=== PATIENT | male | born 1945 | race Caucasian/White ===

== ENCOUNTER → 2019-03-15 09:04 | Outpatient (CLI) | payer OTHER, SELFPAY ==
--- NOTE | 2019-03-15 | DI.US.S_ITS ---
PROCEDURE: US PARACENTESIS INDICATIONS: ASCITIES TECHNIQUE: The indications, alternatives, benefits, risks, and complications of the procedure were explained to the patient. Written informed consent was obtained and placed in the chart. The abdomen and pelvis were examined sonographically, and an appropriate site was chosen for paracentesis. The skin was prepared and draped in the usual sterile fashion, and 1% lidocaine was infiltrated from the skin down through the peritoneal surface. A 19-gauge catheter-covered needle was then introduced into the peritoneal space, the catheter was advanced and the needle was withdrawn, and thereafter peritoneal fluid was withdrawn. The catheter was then removed and a dressing was applied. The fluid was discarded if the clinician did not order diagnostic testing of the fluid. COMPARISON: None. FINDINGS: Access site: Right lateral abdomen/pelvis junction. Needle: One-Step centesis catheter with introducer needle. Fluid volume and description: 3400 cc, clear serous fluid Fluid sent for diagnostic testing: Not requested Medications: 1% lidocaine for local anaesthesia. Complications: None. IMPRESSION: Successful ultrasound-guided paracentesis. Dictated by: Mark Paris M.D. on 03/15/2019 at 11:43 Approved by: Mark Paris M.D. on 03/15/2019 at 11:45
== END ==
PROVIDERS: Visit Provider Internal Medicine Hematology & Oncology
DX: C22.0 Liver cell carcinoma (principal); R18.8 Other ascites; K74.60 Unspecified cirrhosis of liver
CPT/HCPCS: 49083

== ENCOUNTER 2019-09-05 15:46 | Emergency (ER) | payer OTHER, SELFPAY ==
[2019-09-05] VITALS (8 sets, daily range): BP systolic 125–152; BP diastolic 58–69; PULSE 63–69; RESP 17–19; TEMP 36.1; O2SAT 96–100; BMI 31.9
[2019-09-05 17:01] LABS: Add Manual Diff / Slide Review NO; Basophils Absolute Auto 100 /uL (0-100); Basophils Percent Auto 0.7 % (0-2); Eosinophils Absolute Auto 400 /uL (0-450); Eosinophils Percent Auto 4.1 % (2-4); Hematocrit 31.2 % (41-53); Hemoglobin 10.7 g/dL (13.5-17.5); Lymphocytes Absolute Auto 900 /uL (1100-4500); Lymphocytes Percent Auto 10.4 % (25-40); Mean Corpuscular HGB Conc 34.3 % (30-36); Mean Corpuscular Hemoglobin 31.6 PG (26-34); Mean Corpuscular Volume 92.3 fL (80-100); Monocytes Absolute Auto 900 /uL (0-900); Monocytes Percent Auto 11.1 % (3-14); Neutrophils Absolute Auto 6300 /uL (1500-7000); Neutrophils Percent Auto 73.7 % (50-75); Platelet Count 158 X10^3/uL (150-400); Red Blood Cell Count 3.38 X10^6/uL (4.5-5.9); Red Cell Distribution Width 15.9 % (11.6-14.8); White Blood Cell Count 8.5 X10^3/uL (4.5-11.0)
[2019-09-05 17:07] LABS: INR 1.2 (0.9-1.3); Prothrombin Time 14.2 SECONDS (10.1-12.7)
[2019-09-05 17:12] LABS: Alanine Aminotransferase 82 IU/L (<50); Albumin 3.7 g/dL (3.5-5.0); Albumin Globulin Ratio 0.9 (1.0-2.8); Alkaline Phosphatase 300 U/L (38-126); Aspartate Aminotransferase 208 IU/L (17-59); BUN Creatinine Ratio 23.3 (6-22); Bilirubin Total 3.2 mg/dL (0.2-1.3); Blood Urea Nitrogen 49 mg/dL (9-20); Calcium 10.5 mg/dL (8.4-10.2); Carbon Dioxide 19 mmol/L (22-32); Chloride 107 mmol/L (98-107); Globulin 3.9 g/dL (1.7-4.1); Glucose 210 mg/dL (80-110); HEMOLYSIS < 15 (0-50); Potassium 5.2 mmol/L (3.4-5.1); Sodium 137 mmol/L (137-145); Total Protein 7.6 g/dL (6.3-8.2)
--- NOTE | 2019-09-05 17:17 | DI.RAD.S_ITS ---
PROCEDURE: XR CHEST 1V INDICATIONS: weakness TECHNIQUE: One view of the chest was acquired. COMPARISON: None. FINDINGS: Surgical changes and devices: None. Lungs and pleura: There are medial linear bibasilar opacities likely representing atelectasis. No pleural effusions or pneumothorax. Mediastinum: There is a moderate to large hiatal hernia. Heart size is normal. Bones and chest wall: No suspicious bony lesions. Overlying soft tissues appear unremarkable. IMPRESSION: 1. Moderate to large hilar hernia with medial linear bibasilar opacities likely representing associated atelectasis although the differential includes consolidation or aspiration. Dictated by: Erick Henriquez M.D. on 09/05/2019 at 17:41 Approved by: Erick Henriquez M.D. on 09/05/2019 at 17:46
[2019-09-05 17:31] LABS: PTT Partial Thromboplastin Tim 32 SECONDS (26.4-36.2)
[2019-09-05 17:33] LABS: Creatine Kinase 112 U/L (55-170); Magnesium 2.2 mg/dL (1.6-2.3)
[2019-09-05 17:44] LABS: Troponin I < 0.012 ng/mL (0.01-0.034)
[2019-09-05 17:48] LABS: CKMB % Relative Index 3.5 % (1.5-5.0); Creatine Kinase MB 3.92 ng/mL (<2.37)
[2019-09-05 18:13] LABS: B Type Natriuretic Peptide 107 (<100)
[2019-09-05 18:31] LABS: Appearance Urine UA CLEAR; Bilirubin Urine UA NEGATIVE (NEGATIVE); Color Urine UA YELLOW; Glucose Urine UA NEGATIVE (Negative); Ketones Urine UA NEGATIVE (NEGATIVE); Leukocyte Esterase Urine UA NEGATIVE (NEGATIVE); Nitrite Urine UA NEGATIVE (Negative); Occult Blood Urine UA TRACE-LYSED (Negative); Protein Urine UA NEGATIVE (Negative); Specific Gravity Urine UA <=1.005 (1.000-1.035); Urobilinogen Urine UA 0.2 E.U./dL (0.2); pH Urine UA 5.5 (4.5-8.0)
[2019-09-05 18:38] LABS: Bacteria Urine Occasional (0-1); Culture Indicated Urine Cult Not Indicated; RBC Urine 1-5/HPF (0-5/HPF); Squamous Epithelial Cell Urine 1-5 /HPF (0-5/HPF); WBC Urine 1-5/HPF (0-5/HPF)
[2019-09-05 18:51] LABS: Influenza A and B by PCR Rapid Negative (Negative)
[2019-09-05] MEDS: SODIUM CHLORIDE 0.9% 500 ML 1000 ML IV (19:04)
[2019-09-05 19:30] LABS: Procalcitonin 0.13 ng/mL (<0.5)
--- NOTE | 2019-09-05 19:31 | ED.WEAKNESS ---
HPI - Weakness <Misa Marinmer, [employer] - Last Filed: 09/05/19 22:03> General Chief complaint: Weakness Stated complaint: WEAKNESS MIGHT NEED BLOOD TRANSFUSION Time Seen by Provider: 09/05/19 16:45 Source: patient Mode of arrival: Ambulatory Limitations: no limitations History of Present Illness HPI Narrative: The patient is a 74-year-old male nonsmoker with history of hepatocellular carcinoma, kidney stones portal vein thrombosis and liver cirrhosis with ascites who presents with his significant other for chief complaint of weakness over the past 2 days. He thinks he might need a blood transfusion, as he has needed that in the past. He complains of generalized weakness, his significant other states that it takes a lot more work to get him up. He denies any fevers, nausea vomiting or diarrhea. He does complain of decreased appetite. He also complains of a productive cough. He denies any sore throat or ear pain. He states that his ascites needs to gets tapped sometimes. He states that his cough is usually dry, but is occasionally productive. He is not sure if he has been around anybody who is sick. Regarding his cancer, he states he gets monthly infusions. He states this is a chemo like drugs, but he is not sure of the name. He denies any chest pain. He does complain of some increased shortness of breath. He states overall he feels very blah. Family states that he has slept all weekend. Related Data Home Medications Medication Instructions Recorded Confirmed Glucosamine Chondroitin 1 tab PO BID 09/05/19 09/05/19 atenolol 25 mg PO BID 09/05/19 09/05/19 beclomethasone diprop (AQ) 1 spray INTRANASAL BID PRN 09/05/19 09/05/19 cholecalciferol (vitamin D3) 1,000 unit PO QPM 09/05/19 09/05/19 [Vitamin D3] clonazepam 0.5 mg PO BEDTIME 09/05/19 09/05/19 furosemide 40 mg PO DAILY 09/05/19 09/05/19 glipizide 20 mg PO QAM 09/05/19 09/05/19 glipizide 20 mg PO QPM PRN 09/05/19 09/05/19 metformin 1,000 mg PO BID 09/05/19 09/05/19 multivitamin 1 tab PO QAM 09/05/19 09/05/19 omeprazole 40 mg PO DAILY 09/05/19 09/05/19 spironolactone 50 mg PO BID 09/05/19 09/05/19 tamsulosin 0.4 mg PO BEDTIME 09/05/19 09/05/19 Allergies Allergy/AdvReac Type Severity Reaction Status Date / Time ELVIS Inhibitors Allergy Mild Cough Verified 09/05/19 16:06 Review of Systems <MIKEY Delacruz - Last Filed: 09/05/19 22:03> Review of Systems Narrative: GENERAL: See HPI HEENT: Denies sinus pain, ear pain, sore throat, difficulty swallowing, dizziness. RESPIRATORY: See HPI CARDIOVASCULAR: Denies chest pain, palpitations, orthopnea, edema, GASTROINTESTINAL: See HPI : Denies dysuria, frequency, incontinence, hematuria, urinary retention. MUSCULOSKELETAL: denies weakness, joint pain, or bony pain SKIN: Denies rash, skin lesions, or other NEUROLOGIC: Denies weakness, headache, numbness, change in speech, confusion, seizures, incoordination. PSYCHIATRIC: No concerning psychosocial issues. 12 point review of systems is negative except for those stated above Patient History <MIKEY Delacruz - Last Filed: 09/05/19 22:03> Medical History (Updated 09/05/19 @ 22:01 by MIKEY Delacruz) Ascites (Acute) Cirrhosis (Acute) Hepatocellular carcinoma (Acute) Portal vein thrombosis (Acute) Social History Smoking Status: Never smoker Substance Use Type: does not use Exam <MIKEY Delacruz - Last Filed: 09/05/19 22:03> Narrative Exam Narrative: GENERAL: Chronically ill male in no acute distress HEAD: Atraumatic. Normocephalic. No temporal or scalp tenderness. EYES: Pupils equal round and reactive. Extraocular motions intact. No scleral icterus. No injection or drainage. ENT: Nose without bleeding, purulent drainage or septal hematoma. Throat without erythema, tonsillar hypertrophy or exudate. Uvula midline. Airway patent. NECK: Trachea midline. No JVD or lymphadenopathy. Supple, nontender, no meningeal signs. CARDIOVASCULAR: Regular rate and rhythm without murmurs, gallops, or rubs. RESPIRATORY: Coarse bilaterally to auscultation. Breath sounds equal bilaterally. No wheezes, rales, or rhonchi. Cough during exam GASTROINTESTINAL: Abdomen soft, protuberant, active bowel sounds all 4 quadrants. No palpable masses. No guarding. Soft, nontender to palpation EXTREMITIES: No clubbing, cyanosis, or edema. No joint tenderness, effusion, or edema noted. BACK: Nontender without deformity or crepitance. No flank tenderness. NEURO: AOx3. Interactive. Strength is equal upper and lower extremities bilaterally. slight smile droop noted on left side of mouth and lid lag on right. At baseline per patient and family SKIN: No rash or erythema on visible skin. Initial Vital Signs Initial Vital Signs: Vital Signs Temperature 96.9 F L 09/05/19 16:02 Pulse Rate 63 09/05/19 16:02 Respiratory Rate 18 09/05/19 16:02 Blood Pressure 145/59 H 09/05/19 16:02 Pulse Oximetry 97 09/05/19 16:02 <Rehan Greenfield DO - Last Filed: 09/06/19 03:12> Initial Vital Signs Initial Vital Signs: Vital Signs Temperature 96.9 F L 09/05/19 16:02 Pulse Rate 63 09/05/19 16:02 Respiratory Rate 18 09/05/19 16:02 Blood Pressure 145/59 H 09/05/19 16:02 Pulse Oximetry 97 09/05/19 16:02 Scores <MIKEY Delacruz - Last Filed: 09/05/19 22:03> CURB-65 Confusion: No BUN >19mg/dL (>7mmol/L): Yes Respiratory rate greater or equal to 30: No SBP <90mmHg or DBP less or equal to 60mmHg: No Age 65 or Older: Yes CURB-65 Total: 2 Score 0-1 Outpatient care, Score 2 Inpt vs. Obs, Score 3 or over Inpt admit with ICU for score of 4-5 Course <MIKEY Delacruz - Last Filed: 09/05/19 22:03> Orders Ordered: ED Orders 09/05/19 18:22 Influenza A and B by PCR Rapid Stat 09/05/19 18:28 Urinalysis and Microscopic Stat 09/05/19 20:09 Blood Culture Stat Discontinued Medications Sodium Chloride (Normal Saline 0.9%) 500 mls @ 1,000 mls/hr IV BOLUS ONE Stop: 09/05/19 19:10 Last Infusion: 09/05/19 19:35 Dose: 0 mls/hr Documented by: Admin: 09/05/19 19:04 Dose: 1,000 mls/hr Documented by: FRED Levofloxacin (Levaquin) 750 mg in 150 mls @ 100 mls/hr IV NOW ONE Stop: 09/05/19 21:51 Last Infusion: 09/05/19 22:15 Dose: 0 mls/hr Documented by: Admin: 09/05/19 21:31 Dose: 100 mls/hr Documented by: FRED Sodium Chloride (Normal Saline 0.9%) 1,000 mls @ 150 mls/hr IV CONT GLENDA Last Infusion: 09/05/19 22:15 Dose: 0 mls/hr Documented by: Admin: 09/05/19 21:31 Dose: 150 mls/hr Documented by: FRED Vital Signs Vital signs: Vital Signs - 8 hr 09/05/19 20:00 09/05/19 21:00 09/05/19 22:12 Pulse Rate 66 67 69 Respiratory Rate 19 17 18 Blood Pressure [Right Arm] 144/61 H 152/64 H 146/61 H Pulse Oximetry 98 98 99 <Rehan Greenfield DO - Last Filed: 09/06/19 03:12> Orders Ordered: ED Orders 09/05/19 18:22 Influenza A and B by PCR Rapid Stat 09/05/19 18:28 Urinalysis and Microscopic Stat 09/05/19 20:09 Blood Culture Stat Discontinued Medications Sodium Chloride (Normal Saline 0.9%) 500 mls @ 1,000 mls/hr IV BOLUS ONE Stop: 09/05/19 19:10 Last Infusion: 09/05/19 19:35 Dose: 0 mls/hr Documented by: Admin: 09/05/19 19:04 Dose: 1,000 mls/hr Documented by: FRED Levofloxacin (Levaquin) 750 mg in 150 mls @ 100 mls/hr IV NOW ONE Stop: 09/05/19 21:51 Last Infusion: 09/05/19 22:15 Dose: 0 mls/hr Documented by: Admin: 09/05/19 21:31 Dose: 100 mls/hr Documented by: FRED Sodium Chloride (Normal Saline 0.9%) 1,000 mls @ 150 mls/hr IV CONT GLENDA Last Infusion: 09/05/19 22:15 Dose: 0 mls/hr Documented by: Admin: 09/05/19 21:31 Dose: 150 mls/hr Documented by: FRED Vital Signs Vital signs: Vital Signs - 8 hr 09/05/19 20:00 09/05/19 21:00 09/05/19 22:12 Pulse Rate 66 67 69 Respiratory Rate 19 17 18 Blood Pressure [Right Arm] 144/61 H 152/64 H 146/61 H Pulse Oximetry 98 98 99 MDM - Weakness <LUIZ DelacruzBC - Last Filed: 09/05/19 22:03> Lab Data Result diagrams: 09/05/19 16:40 09/05/19 16:40 Labs: Lab Results 09/05/19 09/05/19 09/05/19 Range/Units 16:40 16:40 16:40 WBC 8.5 (4.5-11.0) X10^3/uL RBC 3.38 L (4.5-5.9) X10^6/uL Hgb 10.7 L (13.5-17.5) g/dL Hct 31.2 L (41-53) % MCV 92.3 (80-100) fL MCH 31.6 (26-34) PG MCHC 34.3 (30-36) % RDW 15.9 H (11.6-14.8) % Plt Count 158 (150-400) X10^3/uL Neut % (Auto) 73.7 (50-75) % Lymph % (Auto) 10.4 L (25-40) % [place] % (Auto) 11.1 (3-14) % Eos % (Auto) 4.1 H (2-4) % Baso % (Auto) 0.7 (0-2) % Neut # (Auto) 6300 (4541-9134) /uL Lymph # (Auto) 900 L (3772-6424) /uL [place] # (Auto) 900 (0-900) /uL Eos # (Auto) 400 (0-450) /uL Baso # (Auto) 100 (0-100) /uL PT (10.1-12.7) SECONDS INR (0.9-1.3) APTT (26.4-36.2) SECONDS Sodium 137 (137-145) mmol/L Potassium 5.2 H (3.4-5.1) mmol/L Chloride 107 (98-107) mmol/L Carbon Dioxide 19 L (22-32) mmol/L BUN 49 H (9-20) mg/dL Creatinine 2.10 H (0.66-1.25) mg/dL Estimated GFR 31.0 L (>60) mL/min BUN/Creatinine Ratio 23.3 H (6-22) Glucose 210 H (80-110) mg/dL Calcium 10.5 H (8.4-10.2) mg/dL Magnesium (1.6-2.3) mg/dL Total Bilirubin 3.2 H (0.2-1.3) mg/dL AST 208 H (17-59) IU/L ALT 82 H (<50) IU/L Alkaline Phosphatase 300 H (38-126) U/L Total Creatine Kinase (55-170) U/L CK-MB (CK-2) (<2.37) ng/mL CK-MB (CK-2) Rel Index (1.5-5.0) % Troponin I (0.01-0.034) ng/mL B-Natriuretic Peptide (<100) Total Protein 7.6 (6.3-8.2) g/dL Albumin 3.7 (3.5-5.0) g/dL Globulin 3.9 (1.7-4.1) g/dL Albumin/Globulin Ratio 0.9 L (1.0-2.8) Procalcitonin (<0.5) ng/mL Urine Color Urine Appearance Urine pH (4.5-8.0) Ur Specific Emerson (1.000-1.035) Urine Protein (Negative) Urine Glucose (UA) (Negative) g/dL Urine Ketones (NEGATIVE) Urine Occult Blood (Negative) Urine Nitrate (Negative) Urine Bilirubin (NEGATIVE) Urine Urobilinogen (0.2) E.U./dL Ur Leukocyte Esterase (NEGATIVE) Urine RBC (0-5/HPF) Urine WBC (0-5/HPF) Ur Squamous Epith Cells (0-5/HPF) Urine Bacteria (None) Ur Culture Indicated? Influenza A & B (PCR) (Negative) Blood Type O Positive Antibody Screen Negative 09/05/19 09/05/19 09/05/19 Range/Units 16:40 16:40 16:40 WBC (4.5-11.0) X10^3/uL RBC (4.5-5.9) X10^6/uL Hgb (13.5-17.5) g/dL Hct (41-53) % MCV (80-100) fL MCH (26-34) PG MCHC (30-36) % RDW (11.6-14.8) % Plt Count (150-400) X10^3/uL Neut % (Auto) (50-75) % Lymph % (Auto) (25-40) % [place] % (Auto) (3-14) % Eos % (Auto) (2-4) % Baso % (Auto) (0-2) % Neut # (Auto) (5967-3567) /uL Lymph # (Auto) (5568-1532) /uL [place] # (Auto) (0-900) /uL Eos # (Auto) (0-450) /uL Baso # (Auto) (0-100) /uL PT 14.2 H (10.1-12.7) SECONDS INR 1.2 (0.9-1.3) APTT 32 (26.4-36.2) SECONDS Sodium (137-145) mmol/L Potassium (3.4-5.1) mmol/L Chloride (98-107) mmol/L Carbon Dioxide (22-32) mmol/L BUN (9-20) mg/dL Creatinine (0.66-1.25) mg/dL Estimated GFR (>60) mL/min BUN/Creatinine Ratio (6-22) Glucose (80-110) mg/dL Calcium (8.4-10.2) mg/dL Magnesium 2.2 (1.6-2.3) mg/dL Total Bilirubin (0.2-1.3) mg/dL AST (17-59) IU/L ALT (<50) IU/L Alkaline Phosphatase (38-126) U/L Total Creatine Kinase 112 (55-170) U/L CK-MB (CK-2) 3.92 H (<2.37) ng/mL CK-MB (CK-2) Rel Index 3.5 (1.5-5.0) % Troponin I < 0.012 (0.01-0.034) ng/mL B-Natriuretic Peptide (<100) Total Protein (6.3-8.2) g/dL Albumin (3.5-5.0) g/dL Globulin (1.7-4.1) g/dL Albumin/Globulin Ratio (1.0-2.8) Procalcitonin (<0.5) ng/mL Urine Color Urine Appearance Urine pH (4.5-8.0) Ur Specific Emerson (1.000-1.035) Urine Protein (Negative) Urine Glucose (UA) (Negative) g/dL Urine Ketones (NEGATIVE) Urine Occult Blood (Negative) Urine Nitrate (Negative) Urine Bilirubin (NEGATIVE) Urine Urobilinogen (0.2) E.U./dL Ur Leukocyte Esterase (NEGATIVE) Urine RBC (0-5/HPF) Urine WBC (0-5/HPF) Ur Squamous Epith Cells (0-5/HPF) Urine Bacteria (None) Ur Culture Indicated? Influenza A & B (PCR) (Negative) Blood Type Antibody Screen 09/05/19 09/05/19 09/05/19 Range/Units 16:40 16:40 18:22 WBC (4.5-11.0) X10^3/uL RBC (4.5-5.9) X10^6/uL Hgb (13.5-17.5) g/dL Hct (41-53) % MCV (80-100) fL MCH (26-34) PG MCHC (30-36) % RDW (11.6-14.8) % Plt Count (150-400) X10^3/uL Neut % (Auto) (50-75) % Lymph % (Auto) (25-40) % [place] % (Auto) (3-14) % Eos % (Auto) (2-4) % Baso % (Auto) (0-2) % Neut # (Auto) (9529-5112) /uL Lymph # (Auto) (8748-0710) /uL [place] # (Auto) (0-900) /uL Eos # (Auto) (0-450) /uL Baso # (Auto) (0-100) /uL PT (10.1-12.7) SECONDS INR (0.9-1.3) APTT (26.4-36.2) SECONDS Sodium (137-145) mmol/L Potassium (3.4-5.1) mmol/L Chloride (98-107) mmol/L Carbon Dioxide (22-32) mmol/L BUN (9-20) mg/dL Creatinine (0.66-1.25) mg/dL Estimated GFR (>60) mL/min BUN/Creatinine Ratio (6-22) Glucose (80-110) mg/dL Calcium (8.4-10.2) mg/dL Magnesium (1.6-2.3) mg/dL Total Bilirubin (0.2-1.3) mg/dL AST (17-59) IU/L ALT (<50) IU/L Alkaline Phosphatase (38-126) U/L Total Creatine Kinase (55-170) U/L CK-MB (CK-2) (<2.37) ng/mL CK-MB (CK-2) Rel Index (1.5-5.0) % Troponin I (0.01-0.034) ng/mL B-Natriuretic Peptide 107 H (<100) Total Protein (6.3-8.2) g/dL Albumin (3.5-5.0) g/dL Globulin (1.7-4.1) g/dL Albumin/Globulin Ratio (1.0-2.8) Procalcitonin 0.13 (<0.5) ng/mL Urine Color Urine Appearance Urine pH (4.5-8.0) Ur Specific Emerson (1.000-1.035) Urine Protein (Negative) Urine Glucose (UA) (Negative) g/dL Urine Ketones (NEGATIVE) Urine Occult Blood (Negative) Urine Nitrate (Negative) Urine Bilirubin (NEGATIVE) Urine Urobilinogen (0.2) E.U./dL Ur Leukocyte Esterase (NEGATIVE) Urine RBC (0-5/HPF) Urine WBC (0-5/HPF) Ur Squamous Epith Cells (0-5/HPF) Urine Bacteria (None) Ur Culture Indicated? Influenza A & B (PCR) Negative (Negative) Blood Type Antibody Screen 09/05/19 Range/Units 18:28 WBC (4.5-11.0) X10^3/uL RBC (4.5-5.9) X10^6/uL Hgb (13.5-17.5) g/dL Hct (41-53) % MCV (80-100) fL MCH (26-34) PG MCHC (30-36) % RDW (11.6-14.8) % Plt Count (150-400) X10^3/uL Neut % (Auto) (50-75) % Lymph % (Auto) (25-40) % [place] % (Auto) (3-14) % Eos % (Auto) (2-4) % Baso % (Auto) (0-2) % Neut # (Auto) (6130-4972) /uL Lymph # (Auto) (1362-2521) /uL [place] # (Auto) (0-900) /uL Eos # (Auto) (0-450) /uL Baso # (Auto) (0-100) /uL PT (10.1-12.7) SECONDS INR (0.9-1.3) APTT (26.4-36.2) SECONDS Sodium (137-145) mmol/L Potassium (3.4-5.1) mmol/L Chloride (98-107) mmol/L Carbon Dioxide (22-32) mmol/L BUN (9-20) mg/dL Creatinine (0.66-1.25) mg/dL Estimated GFR (>60) mL/min BUN/Creatinine Ratio (6-22) Glucose (80-110) mg/dL Calcium (8.4-10.2) mg/dL Magnesium (1.6-2.3) mg/dL Total Bilirubin (0.2-1.3) mg/dL AST (17-59) IU/L ALT (<50) IU/L Alkaline Phosphatase (38-126) U/L Total Creatine Kinase (55-170) U/L CK-MB (CK-2) (<2.37) ng/mL CK-MB (CK-2) Rel Index (1.5-5.0) % Troponin I (0.01-0.034) ng/mL B-Natriuretic Peptide (<100) Total Protein (6.3-8.2) g/dL Albumin (3.5-5.0) g/dL Globulin (1.7-4.1) g/dL Albumin/Globulin Ratio (1.0-2.8) Procalcitonin (<0.5) ng/mL Urine Color Yellow Urine Appearance Clear Urine pH 5.5 (4.5-8.0) Ur Specific Emerson <=1.005 (1.000-1.035) Urine Protein Negative (Negative) Urine Glucose (UA) Negative (Negative) g/dL Urine Ketones Negative (NEGATIVE) Urine Occult Blood Trace-lysed (Negative) Urine Nitrate Negative (Negative) Urine Bilirubin Negative (NEGATIVE) Urine Urobilinogen 0.2 (0.2) E.U./dL Ur Leukocyte Esterase Negative (NEGATIVE) Urine RBC 1-5/hpf (0-5/HPF) Urine WBC 1-5/hpf (0-5/HPF) Ur Squamous Epith Cells 1-5 /hpf (0-5/HPF) Urine Bacteria Occasional (0-1) (None) Ur Culture Indicated? Cult not indicated Influenza A & B (PCR) (Negative) Blood Type Antibody Screen Imaging Data Chest x-ray: Radiologist's impression: [place] [address] XRay Report Signed Patient: ANNETTE CR#: [id number] : 5Acct:[id number] Age/Sex: 74 / MDate of Service: 09/05/19 Loc: ED Accession Number: [id number] Procedure: XR chest 1V Ordering Provider: Misa Baptiste PROCEDURE: XR CHEST 1V INDICATIONS: weakness TECHNIQUE: One view of the chest was acquired. COMPARISON: None. FINDINGS: Surgical changes and devices: None. Lungs and pleura: There are medial linear bibasilar opacities likely representing atelectasis. No pleural effusions or pneumothorax. Mediastinum: There is a moderate to large hiatal hernia. Heart size is normal. Bones and chest wall: No suspicious bony lesions. Overlying soft tissues appear unremarkable. IMPRESSION: 1. Moderate to large hilar hernia with medial linear bibasilar opacities likely representing associated atelectasis although the differential includes consolidation or aspiration. Dictated by: Erick Henriquez M.D. on 09/05/2019 at 17:41 Approved by: Erick Henriquez M.D. on 09/05/2019 at 17:46 ECG Data Attestation: I personally reviewed and interpreted this ECG as follows: Interpretation: Sinus rhythm and ventricular rate 66. No ST elevation or depression noted. No ectopy noted. P.r. interval 164. QRS duration 91 MDM Narrative Medical decision making narrative: The patient is a 74 year old male who presents with a chief complaint of shortness of breath and weakness over the past few days. He does have a complicated medical history including hepatocellular carcinoma. He has a troponin negative, sinus rhythm, normal urinalysis. This else rule out cardiac and urinary etiology for his weakness. However his chest x-ray is concerning for bibasilar opacities with differential including consolidation or aspiration. This correlates with his complaint of productive cough that has worsened over the past few days. He does not have any leukocytosis, though is receiving treatment at this time. His procalcitonin is slightly elevated at 0.15, which does not strongly discouraged antibiotic treatment for lower respiratory tract infection. Records were obtained from [facility], illustrating an elevated creatinine from 1.4 to over 2, raising concern of dehydration versus kidney injury. Given his multiple risk factors, systemic weakness, pneumonia on x-ray, I spoke with [facility] in order to facilitate admission for the patient. The patient strongly prefers to be admitted to a [facility] facility, as this is where he has had his care. He has also medically complicated would benefit from continuity of care. I spoke with Dr. Lea from Hematology-Oncology suggest that the patient should be admitted. I spoke with fatimah Gann who kindly agreed to accept the patient for transfer. Is in agreement of Levaquin for initiation of pneumonia treatment. That was given at [facility] and patient was transferred at 10:00 p.m.. Patient and significant other state understanding and have no questions or concerns regarding transfer process. <Rehan Greenfield, DO - Last Filed: 09/06/19 03:12> Lab Data Labs: Lab Results 09/05/19 09/05/19 09/05/19 Range/Units 16:40 16:40 16:40 WBC 8.5 (4.5-11.0) X10^3/uL RBC 3.38 L (4.5-5.9) X10^6/uL Hgb 10.7 L (13.5-17.5) g/dL Hct 31.2 L (41-53) % MCV 92.3 (80-100) fL MCH 31.6 (26-34) PG MCHC 34.3 (30-36) % RDW 15.9 H (11.6-14.8) % Plt Count 158 (150-400) X10^3/uL Neut % (Auto) 73.7 (50-75) % Lymph % (Auto) 10.4 L (25-40) % [place] % (Auto) 11.1 (3-14) % Eos % (Auto) 4.1 H (2-4) % Baso % (Auto) 0.7 (0-2) % Neut # (Auto) 6300 (8112-4338) /uL Lymph # (Auto) 900 L (7839-4035) /uL [place] # (Auto) 900 (0-900) /uL Eos # (Auto) 400 (0-450) /uL Baso # (Auto) 100 (0-100) /uL PT (10.1-12.7) SECONDS INR (0.9-1.3) APTT (26.4-36.2) SECONDS Sodium 137 (137-145) mmol/L Potassium 5.2 H (3.4-5.1) mmol/L Chloride 107 (98-107) mmol/L Carbon Dioxide 19 L (22-32) mmol/L BUN 49 H (9-20) mg/dL Creatinine 2.10 H (0.66-1.25) mg/dL Estimated GFR 31.0 L (>60) mL/min BUN/Creatinine Ratio 23.3 H (6-22) Glucose 210 H (80-110) mg/dL Calcium 10.5 H (8.4-10.2) mg/dL Magnesium (1.6-2.3) mg/dL Total Bilirubin 3.2 H (0.2-1.3) mg/dL AST 208 H (17-59) IU/L ALT 82 H (<50) IU/L Alkaline Phosphatase 300 H (38-126) U/L Total Creatine Kinase (55-170) U/L CK-MB (CK-2) (<2.37) ng/mL CK-MB (CK-2) Rel Index (1.5-5.0) % Troponin I (0.01-0.034) ng/mL B-Natriuretic Peptide (<100) Total Protein 7.6 (6.3-8.2) g/dL Albumin 3.7 (3.5-5.0) g/dL Globulin 3.9 (1.7-4.1) g/dL Albumin/Globulin Ratio 0.9 L (1.0-2.8) Procalcitonin (<0.5) ng/mL Urine Color Urine Appearance Urine pH (4.5-8.0) Ur Specific Emerson (1.000-1.035) Urine Protein (Negative) Urine Glucose (UA) (Negative) g/dL Urine Ketones (NEGATIVE) Urine Occult Blood (Negative) Urine Nitrate (Negative) Urine Bilirubin (NEGATIVE) Urine Urobilinogen (0.2) E.U./dL Ur Leukocyte Esterase (NEGATIVE) Urine RBC (0-5/HPF) Urine WBC (0-5/HPF) Ur Squamous Epith Cells (0-5/HPF) Urine Bacteria (None) Ur Culture Indicated? Influenza A & B (PCR) (Negative) Blood Type O Positive Antibody Screen Negative 09/05/19 09/05/19 09/05/19 Range/Units 16:40 16:40 16:40 WBC (4.5-11.0) X10^3/uL RBC (4.5-5.9) X10^6/uL Hgb (13.5-17.5) g/dL Hct (41-53) % MCV (80-100) fL MCH (26-34) PG MCHC (30-36) % RDW (11.6-14.8) % Plt Count (150-400) X10^3/uL Neut % (Auto) (50-75) % Lymph % (Auto) (25-40) % [place] % (Auto) (3-14) % Eos % (Auto) (2-4) % Baso % (Auto) (0-2) % Neut # (Auto) (0733-6486) /uL Lymph # (Auto) (2286-3050) /uL [place] # (Auto) (0-900) /uL Eos # (Auto) (0-450) /uL Baso # (Auto) (0-100) /uL PT 14.2 H (10.1-12.7) SECONDS INR 1.2 (0.9-1.3) APTT 32 (26.4-36.2) SECONDS Sodium (137-145) mmol/L Potassium (3.4-5.1) mmol/L Chloride (98-107) mmol/L Carbon Dioxide (22-32) mmol/L BUN (9-20) mg/dL Creatinine (0.66-1.25) mg/dL Estimated GFR (>60) mL/min BUN/Creatinine Ratio (6-22) Glucose (80-110) mg/dL Calcium (8.4-10.2) mg/dL Magnesium 2.2 (1.6-2.3) mg/dL Total Bilirubin (0.2-1.3) mg/dL AST (17-59) IU/L ALT (<50) IU/L Alkaline Phosphatase (38-126) U/L Total Creatine Kinase 112 (55-170) U/L CK-MB (CK-2) 3.92 H (<2.37) ng/mL CK-MB (CK-2) Rel Index 3.5 (1.5-5.0) % Troponin I < 0.012 (0.01-0.034) ng/mL B-Natriuretic Peptide (<100) Total Protein (6.3-8.2) g/dL Albumin (3.5-5.0) g/dL Globulin (1.7-4.1) g/dL Albumin/Globulin Ratio (1.0-2.8) Procalcitonin (<0.5) ng/mL Urine Color Urine Appearance Urine pH (4.5-8.0) Ur Specific [place] (1.000-1.035) Urine Protein (Negative) Urine Glucose (UA) (Negative) g/dL Urine Ketones (NEGATIVE) Urine Occult Blood (Negative) Urine Nitrate (Negative) Urine Bilirubin (NEGATIVE) Urine Urobilinogen (0.2) E.U./dL Ur Leukocyte Esterase (NEGATIVE) Urine RBC (0-5/HPF) Urine WBC (0-5/HPF) Ur Squamous Epith Cells (0-5/HPF) Urine Bacteria (None) Ur Culture Indicated? Influenza A & B (PCR) (Negative) Blood Type Antibody Screen 09/05/19 09/05/19 09/05/19 Range/Units 16:40 16:40 18:22 WBC (4.5-11.0) X10^3/uL RBC (4.5-5.9) X10^6/uL Hgb (13.5-17.5) g/dL Hct (41-53) % MCV (80-100) fL MCH (26-34) PG MCHC (30-36) % RDW (11.6-14.8) % Plt Count (150-400) X10^3/uL Neut % (Auto) (50-75) % Lymph % (Auto) (25-40) % [place] % (Auto) (3-14) % Eos % (Auto) (2-4) % Baso % (Auto) (0-2) % Neut # (Auto) (2823-8412) /uL Lymph # (Auto) (9541-0421) /uL [place] # (Auto) (0-900) /uL Eos # (Auto) (0-450) /uL Baso # (Auto) (0-100) /uL PT (10.1-12.7) SECONDS INR (0.9-1.3) APTT (26.4-36.2) SECONDS Sodium (137-145) mmol/L Potassium (3.4-5.1) mmol/L Chloride (98-107) mmol/L Carbon Dioxide (22-32) mmol/L BUN (9-20) mg/dL Creatinine (0.66-1.25) mg/dL Estimated GFR (>60) mL/min BUN/Creatinine Ratio (6-22) Glucose (80-110) mg/dL Calcium (8.4-10.2) mg/dL Magnesium (1.6-2.3) mg/dL Total Bilirubin (0.2-1.3) mg/dL AST (17-59) IU/L ALT (<50) IU/L Alkaline Phosphatase (38-126) U/L Total Creatine Kinase (55-170) U/L CK-MB (CK-2) (<2.37) ng/mL CK-MB (CK-2) Rel Index (1.5-5.0) % Troponin I (0.01-0.034) ng/mL B-Natriuretic Peptide 107 H (<100) Total Protein (6.3-8.2) g/dL Albumin (3.5-5.0) g/dL Globulin (1.7-4.1) g/dL Albumin/Globulin Ratio (1.0-2.8) Procalcitonin 0.13 (<0.5) ng/mL Urine Color Urine Appearance Urine pH (4.5-8.0) Ur Specific [place] (1.000-1.035) Urine Protein (Negative) Urine Glucose (UA) (Negative) g/dL Urine Ketones (NEGATIVE) Urine Occult Blood (Negative) Urine Nitrate (Negative) Urine Bilirubin (NEGATIVE) Urine Urobilinogen (0.2) E.U./dL Ur Leukocyte Esterase (NEGATIVE) Urine RBC (0-5/HPF) Urine WBC (0-5/HPF) Ur Squamous Epith Cells (0-5/HPF) Urine Bacteria (None) Ur Culture Indicated? Influenza A & B (PCR) Negative (Negative) Blood Type Antibody Screen 09/05/19 Range/Units 18:28 WBC (4.5-11.0) X10^3/uL RBC (4.5-5.9) X10^6/uL Hgb (13.5-17.5) g/dL Hct (41-53) % MCV (80-100) fL MCH (26-34) PG MCHC (30-36) % RDW (11.6-14.8) % Plt Count (150-400) X10^3/uL Neut % (Auto) (50-75) % Lymph % (Auto) (25-40) % [place] % (Auto) (3-14) % Eos % (Auto) (2-4) % Baso % (Auto) (0-2) % Neut # (Auto) (9803-2307) /uL Lymph # (Auto) (6713-4765) /uL [place] # (Auto) (0-900) /uL Eos # (Auto) (0-450) /uL Baso # (Auto) (0-100) /uL PT (10.1-12.7) SECONDS INR (0.9-1.3) APTT (26.4-36.2) SECONDS Sodium (137-145) mmol/L Potassium (3.4-5.1) mmol/L Chloride (98-107) mmol/L Carbon Dioxide (22-32) mmol/L BUN (9-20) mg/dL Creatinine (0.66-1.25) mg/dL Estimated GFR (>60) mL/min BUN/Creatinine Ratio (6-22) Glucose (80-110) mg/dL Calcium (8.4-10.2) mg/dL Magnesium (1.6-2.3) mg/dL Total Bilirubin (0.2-1.3) mg/dL AST (17-59) IU/L ALT (<50) IU/L Alkaline Phosphatase (38-126) U/L Total Creatine Kinase (55-170) U/L CK-MB (CK-2) (<2.37) ng/mL CK-MB (CK-2) Rel Index (1.5-5.0) % Troponin I (0.01-0.034) ng/mL B-Natriuretic Peptide (<100) Total Protein (6.3-8.2) g/dL Albumin (3.5-5.0) g/dL Globulin (1.7-4.1) g/dL Albumin/Globulin Ratio (1.0-2.8) Procalcitonin (<0.5) ng/mL Urine Color Yellow Urine Appearance Clear Urine pH 5.5 (4.5-8.0) Ur Specific Emerson <=1.005 (1.000-1.035) Urine Protein Negative (Negative) Urine Glucose (UA) Negative (Negative) g/dL Urine Ketones Negative (NEGATIVE) Urine Occult Blood Trace-lysed (Negative) Urine Nitrate Negative (Negative) Urine Bilirubin Negative (NEGATIVE) Urine Urobilinogen 0.2 (0.2) E.U./dL Ur Leukocyte Esterase Negative (NEGATIVE) Urine RBC 1-5/hpf (0-5/HPF) Urine WBC 1-5/hpf (0-5/HPF) Ur Squamous Epith Cells 1-5 /hpf (0-5/HPF) Urine Bacteria Occasional (0-1) (None) Ur Culture Indicated? Cult not indicated Influenza A & B (PCR) (Negative) Blood Type Antibody Screen Discharge Plan Departure Patient Disposition: [facility] Clinical Impression: Weakness, Cancer, hepatocellular Pneumonia Qualifiers: Pneumonia type: due to unspecified organism Laterality: bilateral Lung location: unspecified part of lung Qualified Code(s): J18.9 - Pneumonia, unspecified organism Discharge Date/Time: 09/05/19 22:15 Prescriptions: No Action multivitamin Tablet 1 tab PO QAM RF: 0 furosemide 40 mg Tablet 40 mg PO DAILY RF: 0 glipizide 10 mg Tablet 20 mg PO QAM RF: 0 glipizide 10 mg Tablet 20 mg PO QPM PRN (Reason: as directed) RF: 0 clonazepam 0.5 mg Tablet 0.5 mg PO BEDTIME RF: 0 atenolol 25 mg Tablet 25 mg PO BID RF: 0 spironolactone 25 mg Tablet 50 mg PO BID RF: 0 tamsulosin 0.4 mg Capsule 0.4 mg PO BEDTIME RF: 0 beclomethasone diprop (AQ) 42 mcg (0.042 %) Brandon,Non-Aerosol 1 spray INTRANASAL BID PRN (Reason: Allergy Symptoms) RF: 0 metformin 1,000 mg Tablet 1,000 mg PO BID RF: 0 omeprazole 20 mg Capsule,Delayed Release(Dr/Ec) 40 mg PO DAILY RF: 0 cholecalciferol (vitamin D3) [Vitamin D3] 1,000 unit Capsule 1,000 unit PO QPM RF: 0 Glucosamine Chondroitin 1 tab PO BID RF: 0
[2019-09-05] MEDS: SODIUM CHLORIDE 0.9% 1,000 ML 150 ML IV (21:31)
[2019-09-05] MEDS: levoFLOXacin 750 MG/150 ML PIGGYBACK 100 MG IV (21:31)
== END 2019-09-05 22:15 | disposition short-term general hospital (02) ==
PROVIDERS: Emergency Medicine; Emergency Provider Nurse Practitioner Family
DX: R53.1 Weakness (principal); J18.9 Pneumonia, unspecified organism; C22.0 Liver cell carcinoma; E11.9 Type 2 diabetes mellitus without complications; R06.02 Shortness of breath
CPT/HCPCS: 36415; 71045; 80053; 81001; 82550; 82553; 83735; 83880; 84145; 84484; 85025; 85610; 85730; 86850; 86900; 86901; 87040; 87502; 93005; 96361; 96365; 99284; 99285; J1956